=== PATIENT | female | born 1960 | race Caucasian/White ===

== ENCOUNTER → 2017-01-27 | Outpatient (CLI) | payer OTHER ==
[2017-01-27 17:43] LABS: Appearance,Urine Clear (Clear); Bilirubin,Urine Negative (Negative); Glucose,Urine (UA) Negative (Negative); Ketones,Urine Negative (Negative); Leukocyte Esterase,Urine Negative (Negative); Nitrite,Urine Negative (Negative); PH, Urine 7.5 (5.0-8.0); Protein,Urine Negative (Negative); Specific Gravity,Urine 1.004 (1.001-1.035); UA Billing (MACRO vs. MICRO) CHEM; Urobilinogen,Urine <2.0 mg/dL (<2.0)
== END | disposition home or self-care (01) ==
LOC: LABWHC1 16:50
PROVIDERS: ATTEND Obstetrics & Gynecology
DX: R82.90 Unspecified abnormal findings in urine (principal)
CPT/HCPCS: 81003; 87077; 87086; 87186

== ENCOUNTER 2017-04-20 08:03 | Emergency (ER) | payer OTHER ==
[2017-04-20] MEDS ORDERED: KETOROLAC 30 MG/ML 1 ML VIAL IVP STA ×2 (08:29→08:36)
--- NOTE | 2017-04-20 08:51 | XR ---
EXAMINATION TYPE: XR chest 2V DATE OF EXAM: 04/20/2017 8:48 AM COMPARISON: NONE TECHNIQUE: PA and lateral views submitted. HISTORY: Chest pain FINDINGS: The lungs are clear and there is no pneumothorax, pleural effusion, or focal pneumonia. No no overt congestion. Biapical pleural thickening. Arthropathy of the shoulders. IMPRESSION: 1. No acute process.
--- NOTE | 2017-04-20 09:17 | ED ---
Chest Pain HPI - General Chief Complaint: Chest Pain Stated Complaint: chest pain Time Seen by Provider: 04/20/17 08:15 Source: patient, RN notes reviewed Mode of arrival: wheelchair Limitations: no limitations - History of Present Illness Initial Comments: This is a 56-year-old female who states she had left-sided chest pain over last week or so she states it does radiate sometimes to the left arm and left scapular area. Is dull and achy at times increases with sneezing or coughing has some movements she does states she has occasional sweats but she relates that to her menopause. She states the pain is currently about 3/10 at its worse. She denies any cough fevers chills sweats or other symptoms no history of heart disease she is nonsmoker. No family history of heart disease at early age. MD Complaint: chest pain - Related Data Home Medications Medication Instructions Recorded Confirmed Cetirizine HCl 10 mg PO DAILY PRN 04/20/17 04/20/17 Ibuprofen [Motrin] 200 - 400 mg PO Q6HR PRN 04/20/17 04/20/17 Levothyroxine Sodium [Synthroid] 100 mcg PO DAILY 04/20/17 04/20/17 Melatonin/Pyridoxine [Melatonin 5 1 tab PO HS PRN 04/20/17 04/20/17 mg Tablet] Triamterene/Hydrochlorothiazid 1 cap PO DAILY 04/20/17 04/20/17 [Dyazide 37.5-25 Capsule] Previous Rx's Medication Instructions Recorded Cyclobenzaprine [Flexeril] 10 mg PO TID #14 tab 04/20/17 Ibuprofen [Motrin] 600 mg PO Q6HR PRN #20 tab 04/20/17 Allergies Allergy/AdvReac Type Severity Reaction Status Date / Time Sulfa (Sulfonamide Allergy Unknown Verified 04/20/17 08:41 Antibiotics) Review of Systems ROS Statement: Those systems with pertinent positive or pertinent negative responses have been documented in the HPI. ROS Other: All systems not noted in ROS Statement are negative. EKG Findings - EKG Results: EKG: interpreted by ADILENE, sinus rhythm (Sinus bradycardia with a rate of 58 LA interval 188 QRS of 88 QT/QTC of 456/447 artifact is present no change when compared to an EKG dated ) Past Medical History Past Medical History: Thyroid Disorder History of Any Multi-Drug Resistant Organisms: None Reported Additional Past Surgical History / Comment(s): bunionectomy, breast reduction Past Psychological History: No Psychological Hx Reported Smoking Status: Never smoker Past Alcohol Use History: Rare Past Drug Use History: None Reported General Exam - General Exam Comments Initial Comments: This is a well-developed well-nourished awake alert oriented 3 female Limitations: no limitations General appearance: alert, in no apparent distress Head exam: Present: atraumatic, normocephalic, normal inspection Eye exam: Present: normal appearance, PERRL, EOMI. Absent: scleral icterus, conjunctival injection, periorbital swelling ENT exam: Present: normal exam, mucous membranes moist Neck exam: Present: normal inspection. Absent: tenderness, meningismus, lymphadenopathy Respiratory exam: Present: normal lung sounds bilaterally, chest wall tenderness (Some mild tenderness palpation over left costochondral margin and over the left trapezius muscle and rhomboid muscles on the left scapular region. ). Absent: respiratory distress, wheezes, rales, rhonchi, stridor Cardiovascular Exam: Present: regular rate, normal rhythm, normal heart sounds. Absent: systolic murmur, diastolic murmur, rubs, gallop, clicks GI/Abdominal exam: Present: soft, normal bowel sounds. Absent: distended, tenderness, guarding, rebound, rigid, bruit, pulsatile mass, hernia Extremities exam: Present: normal inspection, full ROM, normal capillary refill. Absent: tenderness, pedal edema, joint swelling, calf tenderness Back exam: Present: normal inspection Neurological exam: Present: alert, oriented X3, CN II-XII intact Psychiatric exam: Present: normal affect, normal mood Skin exam: Present: warm, dry, intact, normal color. Absent: rash Course Vital Signs 04/20/17 04/20/17 04/20/17 08:05 09:09 10:00 Temperature 99.0 F Pulse Rate 54 L 54 L 58 L Respiratory 17 18 18 Rate Blood Pressure 144/79 129/71 135/73 O2 Sat by Pulse 99 98 98 Oximetry Chest Pain MDM - MDM I did review the imaging and reports patient is feeling much improved she will be discharged the presentation is consistent with a musculoskeletal etiology Disposition Clinical Impression: Costalchondritis, Unstable angina pectoris Disposition: HOME SELF-CARE Condition: Good Instructions: Costochondritis (ED) Prescriptions: Cyclobenzaprine [Flexeril] 10 mg PO TID #14 tab Ibuprofen [Motrin] 600 mg PO Q6HR PRN #20 tab PRN Reason: Pain Referrals: Gildardo Oswald MD [Primary Care Provider] - 1-2 days
[2017-04-20 09:23] LABS: Basophils % (A) 1 %; CH 28.8; CHCM 32.4; Eosinophils # (A) 0.1 k/uL (0-0.7); Eosinophils % (A) 1 %; HDW 2.15; HGB 13.6 gm/dL (11.4-16.0); Luc # (Auto) 0.13; Luc % (Auto) 2; Lymphocytes # (A) 1.4 k/uL (1.0-4.8); Lymphocytes % (A) 19 %; MCH 28.3 pg (25.0-35.0); MCHC 31.6 g/dL (31.0-37.0); MCV 89.4 fL (80.0-100.0); Mean Platelet Volume 8.4; Monocytes # (A) 0.5 k/uL (0-1.0); Monocytes % (A) 7 %; Neutrophils % (A) 70 %; RBC 4.81 m/uL (3.80-5.40); WBC 7.1 k/uL (3.8-10.6); WBC (Perox) 6.84
[2017-04-20 09:27] LABS: ALT 23 U/L (9-52); AST 28 U/L (14-36); Alkaline Phosphatase 97 U/L (38-126); Anion Gap 11 mmol/L; Blood Urea Nitrogen 12 mg/dL (7-17); Calcium 9.6 mg/dL (8.4-10.2); Carbon Dioxide 27 mmol/L (22-30); Chloride 103 mmol/L (98-107); Glucose 95 mg/dL (74-99); Magnesium 2.1 mg/dL (1.6-2.3); Non-African American GFR(MDRD) >60 (>60 ml/min/1.73 sqM); Potassium 4.2 mmol/L (3.5-5.1); Sodium 141 mmol/L (137-145); Total Bilirubin 0.8 mg/dL (0.2-1.3); Total Protein 7.7 g/dL (6.3-8.2)
[2017-04-20 10:07] LABS: Creatine Kinase 64 U/L (30-135)
[2017-04-20 10:20] LABS: Creatine Kinase MB 0.8 ng/mL (0.0-2.4); Troponin I <0.012 ng/mL (0.000-0.034)
[2017-04-20 10:43] LABS: Partial Thromboplastin Time 26.1 sec (22.0-30.0); Prothrombin Time 10.4 sec (9.0-12.0)
[2017-04-20 11:15] VITALS: BP 138/69; PULSE 67
[2017-04-20 11:17] VITALS: RESP 16; TEMP 99.1
== END 2017-04-20 11:21 | disposition home or self-care (01) ==
LOC: EC 08:03
DX: I20.0 Unstable angina (principal); M94.0 Chondrocostal junction syndrome [Tietze]; E07.9 Disorder of thyroid, unspecified; Z53.20 Procedure and treatment not carried out because of patient's decision for unspecified reasons; Z79.899 Other long term (current) drug therapy; Z88.2 Allergy status to sulfonamides
CPT/HCPCS: 36415; 71020; 80053; 82550; 82553; 83735; 84484; 85025; 85379; 85610; 85730; 93005; 99285

== ENCOUNTER → 2017-12-26 | Outpatient (CLI) | payer OTHER ==
--- NOTE | 2017-12-26 16:57 | BD ---
EXAMINATION TYPE: MG DEXA axial skeleton. DATE OF EXAM: 12/26/2017 COMPARISON: 05/29/2012 CLINICAL HISTORY: Height: 61.2 IN Weight: 151 LBS FRAX RISK QUESTIONS: Alcohol (3 or more units per day): NO Family History (Parent hip fracture): NO Glucocorticoids (More than 3mos): NO (Ex: prednisone, prednisolone, methylprednisolone, dexamethasone, and hydrocortisone). History of Fracture in Adulthood: NO Secondary Osteoporosis: 1. Type 1 Diabetes: NO 2. Hyperthyroidism: NO 3. Menopause before 45: AGE 47 4. Malnutrition: NO 5. Chronic liver disease: NO Rheumatoid Arthritis: NO Current Tobacco Use: NO RISK FACTORS HISTORY OF: Family History of Osteoporosis: YES MOTHER Active: YES Postmenopausal woman: AGE 47 MEDICATIONS: Thyroid Medications: YES Which medication: Synthroid How Lon + YEARS Additional Medications: SYNTHROID, WATER PILL EXAM MEASUREMENTS: Bone mineral densitometry was performed using the [employer] System. Bone mineral density as measured about the Lumbar spine is: ----- L1-L4(G/cm2): 1.047 T Score Values are as follows: ----- L2: -2.0 ----- L3: -0.7 ----- L4: -0.4 ----- L1-L4: -1.1 Bone mineral density has: Decreased -7.7% since study of: 05/29/2012 Bone mineral density about the R hip (g/cm2): 0.811 Bone mineral density about the L hip (g/cm2): 0.847 T Score values are as follows: -----R Neck: -1.6 -----L Neck: -1.4 -----R Total: -1.2 -----L Total: -0.8 Bone mineral density has: Decreased -5.5% since study of: 05/29/2012 IMPRESSION: Osteopenia (T Score between -2.5 and -1 as noted by T score values There is slightly increased risk of fracture and the patient may be considered for treatment. Re-Screen 2-5 years. NOTE: T-SCORE=SD OF THE YOUNG ADULT MEAN.
== END | disposition home or self-care (01) ==
LOC: RADBDWWP 16:14
PROVIDERS: ATTEND Obstetrics & Gynecology
DX: M85.80 Other specified disorders of bone density and structure, unspecified site (principal)
CPT/HCPCS: 77080

== ENCOUNTER → 2018-04-06 | Outpatient (CLI) | payer OTHER ==
--- NOTE | 2018-04-06 13:39 | US ---
EXAMINATION TYPE: US venous doppler duplex LE RT DATE OF EXAM: 04/06/2018 1:13 PM COMPARISON: NONE CLINICAL HISTORY: M79.89 Other specified soft tissue disorders. SIDE PERFORMED: Right TECHNIQUE: The lower extremity deep venous system is examined utilizing real time linear array sonog marjan with graded compression, doppler sonography and color-flow sonography. VESSELS IMAGED: External Iliac Vein (EIV) Common Femoral Vein Deep Femoral Vein Greater Saphenous Vein * Femoral Vein Popliteal Vein Small Saphenous Vein * Proximal Calf Veins (* superficial vessels) Right Leg: Negative for DVT Grayscale, color doppler, spectral doppler imaging performed of the deep veins of the right lower ext remity. There is normal flow, compressibility, vascular waveforms. IMPRESSION: No ultrasound evidence for acute DVT in the right lower extremity.
== END | disposition home or self-care (01) ==
LOC: RADUSWWP 12:49
PROVIDERS: ATTEND Pediatrics
DX: M79.89 Other specified soft tissue disorders (principal)

== ENCOUNTER → 2019-10-22 | Outpatient (CLI) | payer OTHER ==
--- NOTE | 2019-10-23 09:05 | MM ---
Reason for exam: screening (asymptomatic). Last mammogram was performed 1 year and 11 months ago. History: Patient is postmenopausal and had first child at age 32. Family history of breast cancer in sister at age 47 and breast cancer in maternal aunt. Reductions of both breasts, 1996. Took hormonal contraceptives for 1 year beginning at age 19. Physical Findings: A clinical breast exam by your physician is recommended on an annual basis and results should be correlated with mammographic findings. MG 3D Screening Mammo W/Cad Bilateral CC and MLO view(s) were taken. Prior study comparison: November 07, 2017, bilateral MG 3d screening mammo w/cad. April 02, 2016, bilateral MG 3d screening mammo w/cad. The breast tissue is heterogeneously dense. This may lower the sensitivity of mammography. There is no discrete abnormality. No significant changes when compared with prior studies. ASSESSMENT: Negative, BI-RAD 1 RECOMMENDATION: Routine screening mammogram of both breasts in 1 year.
== END | disposition home or self-care (01) ==
LOC: RADMAMWWP 06:54
PROVIDERS: ATTEND Pediatrics
DX: Z12.31 Encounter for screening mammogram for malignant neoplasm of breast (principal)
CPT/HCPCS: 77063; 77067

== ENCOUNTER 2019-11-05 10:18 | Day surgery (SDC) | payer OTHER ==
[2019-11-02 08:51] VITALS: BMI 28.3
[~2019-11-05 10:18] MED LIST: LACTATED RINGERS 1,000 ML IV SCH; LIDOCAINE 1% 20 ML VIAL (10MG/ML) FOR IV START INTRADERMA PRN
[2019-11-05 10:46] VITALS: TEMP 97.8
[2019-11-05] MEDS ORDERED: LACTATED RINGERS 1,000 ML IV ONE (10:47)
[2019-11-05] MEDS ORDERED: PROPOFOL 10 MG/ML 20 ML VIAL IV ONE (11:42)
--- NOTE | 2019-11-05 12:19 | P.PCN ---
Date of Procedure: 11/05/19 Description of Procedure: BRIEF HISTORY: Patient is a 59-year-old pleasant female scheduled for an elective colonoscopy as a part of screening for malignant neoplasm of the colon. Patient believes prior colonoscopies were normal. Denies any change in bowel habits, blood per rectum or abdominal pain. No family history of colon cancer. PROCEDURE PERFORMED: Colonoscopy with polypectomy. PREOPERATIVE DIAGNOSIS: Screening for malignant neoplasm of the colon. ESTIMATED BLOOD LOSS: Minimal. IV sedation per Anesthesia. PROCEDURE: After informed consent was obtained, the patient, was brought into the endoscopy unit. IV sedation was administered by Anesthesia under continuous monitoring. Digital rectal examination was normal. Initially the Olympus CF-190 flexible video colonoscope was then inserted in the rectum, gradually advanced into the cecum without any difficulty. Careful examination was performed as the scope was gradually being withdrawn. Ileocecal valve and the appendiceal orifice were visualized and appeared normal. Prep was excellent. Mucosa of the cecum, ascending colon, transverse colon, descending colon, sigmoid colon, and rectum appeared normal. A diminutive 2 mm transverse colon polyp was removed with cold forcep polypectomy. Multiple small mouth diverticula noted in the left colon. Retroflexion was performed in the rectum and no lesions were seen. The patient tolerated the procedure well. IMPRESSION: Mild left colon diverticulosis. Diminutive transverse colon polyp removed with cold forceps. RECOMMENDATIONS: Findings of this examination were discussed with the patient and her family. Okay to resume diet and medications. Await pathology from polypectomy. Anticipate repeat colonoscopy in 5-10 years pending pathology from polypectomy.
[2019-11-05 12:32] VITALS: BP 116/68; PULSE 54; RESP 16
== END 2019-11-05 12:50 | disposition home or self-care (01) ==
LOC: ORWHC2ENDO 10:18
PROVIDERS: ATTEND Internal Medicine
DX: Z12.11 Encounter for screening for malignant neoplasm of colon (principal); D12.3 Benign neoplasm of transverse colon; K57.30 Diverticulosis of large intestine without perforation or abscess without bleeding; E07.9 Disorder of thyroid, unspecified; Z88.2 Allergy status to sulfonamides; Z79.1 Long term (current) use of non-steroidal anti-inflammatories (NSAID); Z79.890 Hormone replacement therapy; Z79.899 Other long term (current) drug therapy; Z90.710 Acquired absence of both cervix and uterus; Z98.890 Other specified postprocedural states
CPT/HCPCS: 88305; 45380; J2704

== ENCOUNTER → 2020-02-04 | Outpatient (CLI) | payer OTHER ==
--- NOTE | 2020-02-05 07:30 | BD ---
EXAMINATION TYPE: Axial Bone Density DATE OF EXAM: 02/04/2020 COMPARISON: 12/26/2017 DEXA bone scan. CLINICAL HISTORY: Postmenopausal female. Height: 62 IN Weight: 159 LBS FRAX RISK QUESTIONS: Secondary Osteoporosis: 3. Menopause before 45: PARTIAL HYST AGE 44 RISK FACTORS HISTORY OF: Family History of Osteoporosis: YES MOTHER Active: YES Diet low in dairy products/other sources of calcium: YES Postmenopausal woman: AGE 44 PARTIAL HYST MEDICATIONS: Thyroid Medications: LEVOTHYROXINE How Lon YEARS+ Additional Medications: VIT D, LEVOTHYROXINE, MULTI VIT, MELATONIN, STOOL SOFTENER, WATER PILL EXAM MEASUREMENTS: Bone mineral densitometry was performed using the [employer] System. Bone mineral density as measured about the Lumbar spine is: ----- L1-L4(G/cm2): 1.015 T Score Values are as follows: ----- L2: -2.2 ----- L3: -0.5 ----- L4: -1.1 ----- L1-L4: -1.4 Bone mineral density has: Decreased -3.1% since study of: 12/26/2017 Bone mineral density about the R hip (g/cm2): 0.753 Bone mineral density about the L hip (g/cm2): 0.724 T Score values are as follows: -----R Neck: -2.1 -----L Neck: -2.3 -----R Total: -1.7 -----L Total: -1.4 Bone mineral density BASELINE IMPRESSION: Osteopenia (T Score between -2.5 and -1) remains present. Bone density decrease or diminished from pr ior. There remains slightly increased risk of fracture and the patient may be considered for treatment. Re-Screen 2-5 years. NOTE: T-SCORE=SD OF THE YOUNG ADULT MEAN.
== END | disposition home or self-care (01) ==
LOC: RADBDWWP 16:10
PROVIDERS: ATTEND Obstetrics & Gynecology
DX: M85.80 Other specified disorders of bone density and structure, unspecified site (principal)
CPT/HCPCS: 77080

== ENCOUNTER → 2021-08-25 | Outpatient (CLI) | payer OTHER ==
--- NOTE | 2021-08-26 09:43 | MM ---
Reason for exam: screening (asymptomatic). Last mammogram was performed 1 year and 10 months ago. History: Patient is postmenopausal and had first child at age 32. Family history of breast cancer in sister at age 47 and breast cancer in maternal aunt. Reductions of both breasts, 1996. Took hormonal contraceptives for 1 year beginning at age 19. Physical Findings: A clinical breast exam by your physician is recommended on an annual basis and results should be correlated with mammographic findings. MG 3D Screening Mammo W/Cad Bilateral CC and MLO view(s) were taken. Prior study comparison: October 22, 2019, bilateral MG 3d screening mammo w/cad. November 07, 2017, bilateral MG 3d screening mammo w/cad. The breast tissue is heterogeneously dense. This may lower the sensitivity of mammography. There is no discrete abnormality. No significant changes when compared with prior studies. ASSESSMENT: Benign, BI-RAD 2 RECOMMENDATION: Routine screening mammogram of both breasts in 1 year.
== END | disposition home or self-care (01) ==
LOC: RADMAMWWP 10:11
PROVIDERS: ATTEND Pediatrics
DX: Z12.31 Encounter for screening mammogram for malignant neoplasm of breast (principal); Z78.0 Asymptomatic menopausal state; Z80.3 Family history of malignant neoplasm of breast
CPT/HCPCS: 77063; 77067

== ENCOUNTER → 2022-10-05 | Outpatient (CLI) | payer OTHER ==
--- NOTE | 2022-10-06 08:58 | MM ---
Reason for Exam: Screening (asymptomatic). Last mammogram was performed 1 year(s) and 2 month(s) ago. Patient History: Menarche at age 12. First Full-Term at age 32. Late child-bearing (after 30). Hysterectomy at age 50. Postmenopausal. Hormonal Contraceptives for 1 year from age 19 until age 20. 1996, Bilateral Reduction. Maternal aunt had breast cancer. Sister had breast cancer, age 47. Risk Values: Maye 5 year model risk: 3.2%. NCI Lifetime model risk: 13.1%. Prior Study Comparison: 04/10/2010 Bilateral Diagnostic Mammogram, [facility]. 05/18/2011 Bilateral Diagnostic Mammogram, [facility]. 05/29/2012 Bilateral Diagnostic Mammogram, [facility]. 02/22/2014 Bilateral Diagnostic Mammogram, [facility]. 04/02/2016 Bilateral Screening Mammogram, [facility]. 11/07/2017 Bilateral Screening Mammogram, [facility]. 10/22/2019 Bilateral Screening Mammogram, [facility]. 08/25/2021 Bilateral Screening Mammogram, [facility]. Tissue Density: The breast tissue is heterogeneously dense. This may lower the sensitivity of mammography. Findings: Analyzed By CAD. Subtle areas of distortion bilateral posterior upper aspects redemonstrated. On the left that is becoming slightly more prominent with increased central density. Follow-up advised. Overall Assessment: Incomplete: need additional imaging evaluation, BI-RAD 0 Management: Diagnostic Breast Ultrasound of the left breast. Targeted ultrasound left breast posterior upper outer aspect. (Scar tissue versus developing lesion ). Electronically signed and approved by: Krishna Frausto M.D.
== END | disposition home or self-care (01) ==
LOC: RADMAMWWP 08:24
PROVIDERS: ATTEND Pediatrics
DX: Z12.31 Encounter for screening mammogram for malignant neoplasm of breast (principal); Z78.0 Asymptomatic menopausal state; Z80.3 Family history of malignant neoplasm of breast
CPT/HCPCS: 77063; 77067

== ENCOUNTER → 2022-10-05 | Outpatient (CLI) | payer OTHER ==
--- NOTE | 2022-10-05 11:51 | BD ---
EXAMINATION TYPE: Axial Bone Density DATE OF EXAM: 10/05/2022 COMPARISON: 2019 CLINICAL HISTORY: 62 years year old Female. ICD-10 CODE: [id number] OSTEOPENIA Height: 5'2 Weight: 153 FRAX RISK QUESTIONS: Secondary Osteoporosis: RISK FACTORS HISTORY OF: Family History of Osteoporosis: y Diet low in dairy products/other sources of calcium: y Postmenopausal woman: y MEDICATIONS: Thyroid Medications: Which medication: Synthroid How Lon years Additional Medications: cholesterol, Additional History: EXAM MEASUREMENTS: Bone mineral densitometry was performed using the [employer] System. Bone mineral density as measured about the Lumbar spine is: ----- L1-L4(G/cm2): 1.032 T Score Values are as follows: ----- L1: -1.9 ----- L2: -2.2 ----- L3: -0.6 ----- L4: -0.7 ----- L1-L4: -1.2 Bone mineral density has: Increased 1.7%sincestudy of: 02/04/2020 Bone mineral density about the R hip (g/cm2): 0.735 Bone mineral density about the L hip (g/cm2): 0.737 T Score values are as follows: -----R Neck: -2.2 -----L Neck: -2.2 -----R Total: -1.8 -----L Total: -1.6 Bone mineral density has: -3.1 % since study of: 02/04/2020 FRAX%s: The graph provided illustrates a 10.9%chance major osteoporotic fx and a 1.7% chance for the hips probability for fx in 10 years time. IMPRESSION: Osteopenia (T Score between -2.5 and -1). There is slightly increased risk of fracture and the patient may be considered for treatment. Re-Screen 2-5 years. NOTE: T-SCORE=SD OF THE YOUNG ADULT MEAN.
== END | disposition home or self-care (01) ==
LOC: RADBDWWP 08:21
PROVIDERS: ATTEND Obstetrics & Gynecology
DX: M85.89 Other specified disorders of bone density and structure, multiple sites (principal)
CPT/HCPCS: 77080

== ENCOUNTER → 2022-10-08 | Outpatient (CLI) | payer OTHER ==
--- NOTE | 2022-10-08 13:24 | USB ---
Reason for Exam: Additional evaluation requested from abnormal screening. Patient History: Menarche at age 12. First Full-Term at age 32. Late child-bearing (after 30). Hysterectomy at age 50. Postmenopausal. Hormonal Contraceptives for 1 year from age 19 until age 20. 1996, Bilateral Reduction. Maternal aunt had breast cancer. Sister had breast cancer, age 47. Risk Values: Maye 5 year model risk: 3.2%. NCI Lifetime model risk: 13.1%. Technique: Method: Targeted. Prior Study Comparison: 10/22/2019 Bilateral Screening Mammogram, [facility]. 08/25/2021 Bilateral Screening Mammogram, [facility]. 10/05/2022 Bilateral MG 3D screening mammo w/cad, [facility]. Findings: The upper outer quadrant of the left breast, the axilla of the left breast and the retroareolar of the left breast were scanned. No solid or cystic masses are identified.. Overall Assessment: Negative, BI-RAD 1 Management: Screening Mammogram of both breasts in 1 year. A clinical breast exam by your physician is recommended on an annual basis and results should be correlated with mammographic findings. This exam should not preclude additional follow-up of suspicious palpable abnormalities. Results were given to the patient verbally at the time of exam. Electronically signed and approved by: Shailesh Garcia M.D. Radiologis
== END | disposition home or self-care (01) ==
LOC: RADUSWWP 12:48
PROVIDERS: ATTEND Pediatrics
DX: R92.8 Other abnormal and inconclusive findings on diagnostic imaging of breast (principal); Z78.0 Asymptomatic menopausal state; Z80.3 Family history of malignant neoplasm of breast

== ENCOUNTER → 2023-10-06 | Outpatient (CLI) | payer OTHER ==
--- NOTE | 2023-10-06 13:07 | MM ---
Reason for Exam: Screening (asymptomatic). Last screening mammogram was performed 12 month(s) ago. Patient History: Menarche at age 12. First Full-Term at age 32. Late child-bearing (after 30). Hysterectomy at age 50. Postmenopausal. Hormonal Contraceptives for 1 year from age 19 until age 20. 1996, Bilateral Reduction. Maternal aunt had breast cancer. Sister had breast cancer, age 47. Risk Values: Maye 5 year model risk: 3.3%. NCI Lifetime model risk: 12.7%. Prior Study Comparison: 10/22/2019 Bilateral Screening Mammogram, [facility]. 08/25/2021 Bilateral Screening Mammogram, [facility]. 10/05/2022 Bilateral MG 3D screening mammo w/cad, [facility]. Tissue Density: The breast tissue is heterogeneously dense. This may lower the sensitivity of mammography. Findings: Analyzed By CAD. There is no suspicious group of microcalcifications or new suspicious mass. Overall Assessment: Negative, BI-RAD 1 Management: Screening Mammogram of both breasts in [address] [facility] will attempt to contact patient to return for supplemental views and ultrasound if indicated. Patient should continue monthly self-breast exams. A clinical breast exam by your physician is recommended on an annual basis. This exam should not preclude additional follow-up of suspicious palpable abnormalities. Note on Maye scores and lifetime risk: 1. A Maye score greater than 3% is considered moderate risk. If this is the case, consider specialist referral to assess eligibility for a risk reducing agent. 2. If overall lifetime risk for the development of breast cancer is 20% or higher, the patient may qualify for future screening with alternating mammogram and breast MRI. Electronically signed and approved by: Duong Hernandez DO
== END | disposition home or self-care (01) ==
LOC: RADMAMWWP 09:25
PROVIDERS: ATTEND Pediatrics
DX: Z12.31 Encounter for screening mammogram for malignant neoplasm of breast (principal); Z78.0 Asymptomatic menopausal state; Z80.3 Family history of malignant neoplasm of breast
CPT/HCPCS: 77063; 77067

== ENCOUNTER → 2024-11-06 | Outpatient (CLI) | payer MEDICARE, OTHER ==
--- NOTE | 2024-11-07 08:04 | CA ---
Transthoracic Echo Report Name: Daniela Hummel Age: 64 Gender: F : 1960 Exam Date: 11/06/2024 13:17 Exam Location: [facility] Ht (in): 63 Wt (lb): 157 Ordering Physician: Gildardo Oswald MD Attending/Referring Phys: Madeline Lugo PAC [employer] Supervisor Sophia Robledo RDCS Procedure CPT: Indications: R01.1 CARDIAC MURMUR, UNSPECIFIED Cardiac Hx: Technical Quality: Good Contrast 1: Total Dose (mL): Contrast 2: Total Dose (mL): MEASUREMENTS (Male / Female) Normal Values 2D ECHO LV Diastolic Diameter PLAX 4.9 cm 4.2 - 5.9 / 3.9 - 5.3 cm LV Systolic Diameter PLAX 3.4 cm IVS Diastolic Thickness 0.6 cm 0.6 - 1.0 / 0.6 - 0.9 cm LVPW Diastolic Thickness 0.8 cm 0.6 - 1.0 / 0.6 - 0.9 cm LV Relative Wall Thickness 0.3 LVOT Diameter 2.0 cm LV Diastolic Volume MOD BP 102.1 cm??? 67 - 155 / 56 - 104 cm??? LV Systolic Volume MOD BP 42.9 cm??? 22 - 58 / 19 - 49 cm??? LV Ejection Fraction MOD BP 58.0 % >= 55 % LV Cardiac Index MOD BP 2731.3 cm???/min???m??? LV Diastolic Volume MOD 4C 97.1 cm??? LV Systolic Volume MOD 4C 43.5 cm??? LV Ejection Fraction MOD 4C 55.2 % LV Cardiac Index MOD 4C 2472.4 cm???/min???m??? LV Diastolic Length 4C 7.7 cm LV Systolic Length 4C 6.7 cm LV Diastolic Volume MOD 2C 107.2 cm??? LV Systolic Volume MOD 2C 40.5 cm??? LV Ejection Fraction MOD 2C 62.3 % LV Cardiac Index MOD 2C 3080.5 cm???/min???m??? LV Diastolic Length 2C 7.7 cm LV Systolic Length 2C 6.4 cm LA Volume 55.5 cm??? 18 - 58 / 22 - 52 cm??? LA Volume Index 30.9 cm???/m??? 16 - 28 cm???/m??? Ascending Aorta Diameter 3.8 cm DOPPLER AV Peak Velocity 107.9 cm/s AV Peak Gradient 4.7 mmHg AV Mean Velocity 72.3 cm/s AV Mean Gradient 2.4 mmHg AV Velocity Time Integral 19.1 cm LVOT Peak Velocity 85.0 cm/s LVOT Peak Gradient 2.9 mmHg LVOT Velocity Time Integral 16.5 cm LVOT Stroke Volume 51.1 cm??? LVOT Stroke Volume Index 29.3 ml/m??? LVOT Cardiac Index 2359.9 cm???/min???m??? AV Area Cont Eq vti 2.7 cm??? AV Area Cont Eq pk 2.4 cm??? MV Area PHT 5.2 cm??? Mitral E Point Velocity 45.0 cm/s Mitral A Point Velocity 57.7 cm/s Mitral E to A Ratio 0.8 MV Deceleration Time 146.0 ms PV Peak Velocity 79.6 cm/s PV Peak Gradient 2.5 mmHg FINDINGS Left Ventricle Left ventricular ejection fraction is estimated at 55-60 %. Left ventricular cavity size normal. Left ventricular wall thickness normal. No obvious regional wall motion abnormalities. Right Ventricle Normal right ventricular size and function. Right ventricular systolic pressure within normal limits. Right Atrium Normal right atrial size. Left Atrium Mildly increased left atrial volume. Mitral Valve Structurally normal mitral valve. No evidence for mitral valve prolapse. No mitral stenosis. Trace to mild mitral regurgitation. Aortic Valve Trileaflet aortic valve. Aortic valve sclerosis. No aortic valve stenosis or regurgitation. Tricuspid Valve Structurally normal tricuspid valve. No tricuspid stenosis. Trace tricuspid regurgitation. Pulmonic Valve Structurally normal pulmonic valve. No pulmonic stenosis. No pulmonic regurgitation. Pericardium No pericardial effusion. Small epicardial fat. Aorta Normal size aortic root and proximal ascending aorta. CONCLUSIONS Normal LV size and systolic function. No significant abnormality on the Doppler exam. No pericardial effusion probable small fat pad Previewed by: Dr. Vikas Ramos MD (Electronically Signed) Final Date: 07 November 2024 08:03
== END | disposition home or self-care (01) ==
LOC: RADECHMAIN 13:16
PROVIDERS: ATTEND Pediatrics
DX: R01.1 Cardiac murmur, unspecified (principal); R94.31 Abnormal electrocardiogram [ECG] [EKG]
CPT/HCPCS: 93306